=== PATIENT | male | born 1975 | race Caucasian/White ===

== ENCOUNTER 2017-07-21 11:13 | Outpatient (CLI) | payer BC ==
--- NOTE | 2017-07-21 13:24 | RAD ---
LEFT FOOT 3 VIEWS: Date: 07/21/17 HISTORY: Left foot pain and bruising. Fell in a hole playing rodrigue with kids. FINDINGS/IMPRESSION: No fracture or dislocation is seen. POS: ANTHONY
== END 2017-07-21 11:14 | disposition home or self-care (01) ==
LOC: SCSRAD 11:13
PROVIDERS: ATTEND Family Medicine
DX: M79.672 Pain in left foot (principal)

== ENCOUNTER 2024-01-18 15:19 | Outpatient (CLI) | payer BC, OTHER | END 2024-01-18 15:20 | disposition home or self-care (01) | LOC: SCSRAD 15:19 | PROVIDERS: ATTEND Nurse Practitioner Family | DX: S39.012D Strain of muscle, fascia and tendon of lower back, subsequent encounter (principal); M47.816 Spondylosis without myelopathy or radiculopathy, lumbar region; M41.9 Scoliosis, unspecified | CPT/HCPCS: 72100 ==